=== PATIENT | female | born 2000 | race Caucasian/White ===

== ENCOUNTER 2021-08-08 19:43 | Emergency (ER) | payer OTHER, SELFPAY ==
[2021-08-08 19:50] VITALS: BP 107/70; PULSE 76; RESP 18; TEMP 36.6; O2SAT 97
--- NOTE | 2021-08-08 20:10 | PC.NURSE ---
Pt reports exposure scabies 3 weeks ago, seen at medical and topical steroid cream and oral antihistamine with no improvement, pt states that she has small itchy bumps started on arms now on legs and torso as well, pt reports heat such as from hot shower increases the itching.
--- NOTE | 2021-08-08 21:20 | ED.SKABFB ---
HPI - Skin/Abscess/Foreign Bdy General Chief complaint: Skin/Abscess/Foreign Body Stated complaint: thinks she has scabies Time Seen by Provider: 08/08/21 21:13 Source: patient Mode of arrival: Ambulatory Limitations: no limitations History of Present Illness HPI narrative: Patient is a 21-year-old female presenting with rash concern for scabies. She said she was skin to skin with a boy for about 1 week was diagnosed with scabies. She has been treated as an outpatient for eczema for about 4 weeks she says it is not helping she is very itchy at night. No fever chills or redness. She has been taking a steroid cream and other medications it is not helping. She would like medication for scabies. Related Data Previous Rx's Medication Instructions Recorded permethrin 5 % topical cream 1 applic TOPICAL Q14D #60 g 08/08/21 Allergies Allergy/AdvReac Type Severity Reaction Status Date / Time No Known Drug Allergies Allergy Verified 08/08/21 20:06 Review of Systems Review of Systems Narrative: GENERAL: Denies chills,fever HEENT: Denies throat pain RESPIRATORY: Denies dyspnea, cough, wheezing CARDIOVASCULAR: Denies chest pain, palpitations GASTROINTESTINAL: Denies nausea, vomiting MUSCULOSKELETAL: Denies extremity pain, injury SKIN: See HPI NEUROLOGIC: Denies weakness, dizziness, headache, numbness 8 point review of systems is negative except for those stated above and HPI Patient History Social History Smoking Status: Never smoker Smoking Status: Never smoker Substance Use Type: does not use Exam Initial Vital Signs Initial Vital Signs: Vital Signs Temperature 98 F 08/08/21 19:50 Pulse Rate 76 08/08/21 19:50 Respiratory Rate 18 08/08/21 19:50 Blood Pressure 107/70 08/08/21 19:50 Pulse Oximetry 97 08/08/21 19:50 GENERAL: Well-appearing, well-nourished and in no acute distress. CARDIOVASCULAR: peripheral pulses in tact, cap refill <2 sec RESPIRATORY: No respiratory distress, speaks in full sentences without difficulty EXTREMITIES: Normal range of motion, no clubbing or edema. Neurovascularly intact NEUROLOGICAL: Cranial nerves II through XII grossly intact. Normal gait and speech. SKIN: Very minimal skin testing the palms on hands but not between with fingers certainly not in the webs. Complaining of rash on back as well but do not appreciate it no significant rash elsewhere on the body. Course Vital Signs Vital signs: Vital Signs - 8 hr 08/08/21 19:50 08/08/21 21:34 Temperature 98 F Pulse Rate 76 72 Respiratory Rate 18 16 Blood Pressure 107/70 105/70 Pulse Oximetry 97 99 MDM - Skin/Abscess/Foreign Bdy MDM Narrative Medical decision making narrative: At this time patient has already been treated as outpatient for eczema which is what the rash looks like. Not convinced that it is scabies however she did have exposure will treat her for scabies, see if she has any improvement. Discharge Plan Departure Patient Disposition: Home Clinical Impression: Scabies Instructions: Scabies Activity Restrictions/Additional Instructions: *You have been diagnosed with possible scabies *What to do: *Continue to take medications as directed Permethrin *Follow up with your primary care provider in 2-3 days [and follow up with ortho, urology etc] *Return to ER if you should have [such as] [or] any new, worsening or concerning symptoms Prescriptions: New permethrin 5 % cream 1 applic topical Q14D Qty: 60 0RF Rx Instructions: apply second treatment 14 days after first treatment if live lice remain
[2021-08-08 21:34] VITALS: BP 105/70; PULSE 72; RESP 16; O2SAT 99
== END 2021-08-08 21:36 | disposition home or self-care (01) ==
PROVIDERS: Emergency Provider Emergency Medicine
DX: B86 Scabies (principal)
CPT/HCPCS: 99281